=== PATIENT | female | born 1935 | race Caucasian/White ===

== ENCOUNTER 2019-12-15 18:40 | Inpatient (IN) | payer MEDICARE, OTHER ==
[2019-12-15] MEDS ORDERED: Enoxaparin Sodium 80 MG/0.8 ML SYRINGE ONE (19:52)
[2019-12-15] MEDS ORDERED: Acetaminophen 325 MG TAB PO PRN (22:52)
[2019-12-15] MEDS ORDERED: Ondansetron PF 4 MG/2 ML Vial IVP PRN (22:52)
[2019-12-15] MEDS ORDERED: Ondansetron ODT 4 MG TAB SL PRN (22:52)
[2019-12-15] MEDS ORDERED: Diltiazem HCl 125 MG, Admixture Fee 1 EACH in Sodium Chloride 0.9% 100 ML IVPB SCH (23:00)
[2019-12-15] MEDS ORDERED: Melatonin 3 MG TAB PO PRN (23:16)
[2019-12-15 23:46] LABS: Troponin I 0.112 ng/mL (< 0.028)
[2019-12-16] MEDS ORDERED: Acetaminophen 325 MG TAB PO PRN (01:22)
[2019-12-16] MEDS ORDERED: Ondansetron PF 4 MG/2 ML Vial IVP PRN (01:22)
[2019-12-16] MEDS ORDERED: Acetaminophen 650 MG Suppository PR PRN (01:22)
[2019-12-16] MEDS ORDERED: Ondansetron ODT 4 MG TAB PO PRN (01:22)
[2019-12-16 02:24] LABS: #Basophils 0.1 thou/uL (0.0-0.2); #Eosinphils 0.2 thou/uL (0.0-0.7); #Lymphocytes 2.3 thou/uL (1.20-3.40); #Monocytes 0.9 thou/uL (0.11-0.59); #Neutrophils 4.8 thou/uL (1.40-6.50); %Basophils 1.2 % (0.0-1.0); %Eosinophils 2.9 % (0.0-10.0); %Lymphocytes 27.8 % (21.0-51.0); %Monocytes 10.9 % (0.0-10.0); %Neutrophils 57.3 % (42.0-75.0); Hemoglobin 10.9 g/dL (12.0-16.0); Mean Corpuscular HGB CONC 32.9 g/dL (32.0-36.0); Mean Corpuscular Hemoglobin 30.3 pg (27.0-31.0); Mean Corpuscular Volume 92.3 fL (78.0-98.0); Mean Platelet Volume 7.2 fL (7.4-10.4); Platelet Count 310 thou/uL (130-400); RBC Distribution Width 11.7 % (11.5-14.5); Red Blood Cell (RBC) Count 3.58 mill/uL (4.20-5.40); White Blood Cell (WBC) Count 8.4 thou/uL (4.8-10.8)
[2019-12-16] MEDS ORDERED: Diltiazem HCl 125 MG, Admixture Fee 1 EACH in Sodium Chloride 0.9% 100 ML IVPB SCH (02:32)
[2019-12-16 02:42] LABS: Anion Gap 13 mmol/L (10-20); BUN (Urea Nitrogen) 17 mg/dL (9.8-20.1); Calc. Creatinine Clearance 70 mL/min (70-130); Calcium 9.2 mg/dL (7.8-10.44); Carbon Dioxide 24 mmol/L (23-31); Chloride 107 mmol/L (98-107); Estimated GFR-MDRD 75; Glucose 127 mg/dL (83-110); Magnesium 1.9 mg/dL (1.6-2.6); Potassium 4.2 mmol/L (3.5-5.1); Sodium 140 mmol/L (136-145)
[2019-12-16 02:55] LABS: Lactic Acid 1.5 mmol/L (0.5-2.2)
--- NOTE | 2019-12-16 05:23 | PDOC.HHP ---
Hospitalist HPI - History of Present Illness Palpitations History of Present Illness: Patient presents to the emergency department due to palpitations. States she felt like her heart has been racing for days. She was seen at [facility] and found to be in a flutter therefore started on a diltiazem drip. Laboratory studies done at [facility] showed an indeterminate troponin. Patient denied any chest pain and only complained of feeling her heart racing. She is status post left hip replacement done November 25, 2019. States she has been doing well since her surgery and denies any complaints. No chest pain palpitations or shortness of breath. No cough or hemoptysis. No nausea vomiting no abdominal pain. Has been afebrile without any chills or sweats. All other review systems are negative. ED COURSE: EKG done in the emergency department showed she was in a flutter with heart rate in the 140s. She was given a bolus of diltiazem 20 mg. Also given Lovenox 1 mg/kg and started on a diltiazem drip at 5 mg/h. She was rate controlled in the 80s. Her heart rate steadily increased to the 150s and therefore Cardizem was increased to 7.5 mg/h. She has been rate controlled since then in the 80s. Repeat troponin was 0.135 and then 0.112. [place] ED COURSE: Patient apparently received 6 mg of adenosine 5 mg of metoprolol at outside ER. She also received 20 mg bolus of diltiazem and was started on a diltiazem drip at 5 mg/h. Hemoglobin was 11.9 platelets 355 sodium 142 potassium 4.1 and troponin 0.099. Creatinine 0.82. Glucose 120. PAST MEDICAL HISTORY: Hypertension History of CVA PAST SURGICAL HISTORY: Status post left hip replacement SOCIAL HISTORY: Denies any tobacco use alcohol consumption or illicit drug use. FAMILY HISTORY: Noncontributory. ALLERGIES: No known drug allergies CURRENT MEDICATIONS: Aspirin 81 mg p.o. daily Telmisartan Omeprazole Niacin Probiotic Vitamin B complex Hydrocodone Hospitalist ROS - Medication Medications: Active Medications Generic Name Dose Route Start Last Admin Trade Name Freq PRN Reason Stop Dose Admin Melatonin 3 mg 12/15/19 23:16 12/15/19 23:31 Melatonin PO 3 mg HS PRN Administration Insomnia - Exam General Appearance: NAD General - other findings: Vital signs temp 98.5 pulse 77 BP 118/63 RR 17 O2 sat 96% on RA Eye: PERRL, anicteric sclera ENT: normocephalic atraumatic, no oropharyngeal lesions Neck: supple, no lymphadenopathy Heart: RRR, no murmur, no gallops, no rubs, normal peripheral pulses Respiratory: CTAB, no wheezes, no rales, no ronchi, normal chest expansion Gastrointestinal: soft, non-tender, non-distended, normal bowel sounds, no palpable masses, no guarding, no rigidity Extremities: no edema Skin: normal turgor, no lesions, no rashes Neurological: cranial nerve grossly intact Musculoskeletal: normal tone, normal strength Psychiatric: normal affect, normal behavior, A&O x 3 Hospitalist Results - Labs Result Diagrams: 12/16/19 02:11 12/16/19 02:11 Lab results: WBC 8.4 thou/uL (4.8-10.8) 12/16/19 02:11 Hgb 10.9 g/dL (12.0-16.0) L 12/16/19 02:11 Hct 33.1 % (36.0-47.0) L 12/16/19 02:11 MCV 92.3 fL (78.0-98.0) 12/16/19 02:11 Plt Count 310 thou/uL (130-400) 12/16/19 02:11 Neutrophils % 57.3 % (42.0-75.0) 12/16/19 02:11 Sodium 140 mmol/L (136-145) 12/16/19 02:11 Potassium 4.2 mmol/L (3.5-5.1) 12/16/19 02:11 Chloride 107 mmol/L (98-107) 12/16/19 02:11 Carbon Dioxide 24 mmol/L (23-31) 12/16/19 02:11 BUN 17 mg/dL (9.8-20.1) 12/16/19 02:11 Creatinine 0.74 mg/dL (0.6-1.1) 12/16/19 02:11 Glucose 127 mg/dL (83-110) H 12/16/19 02:11 Lactic Acid 1.5 mmol/L (0.5-2.2) 12/16/19 02:33 Calcium 9.2 mg/dL (7.8-10.44) 12/16/19 02:11 Troponin I 0.110 ng/mL (< 0.028) H 12/16/19 02:11 Hospitalist H&P A/P - Problem (1) Atrial flutter Code(s): I48.92 - UNSPECIFIED ATRIAL FLUTTER Status: Acute (2) Elevated troponin Code(s): R79.89 - OTHER SPECIFIED ABNORMAL FINDINGS OF BLOOD CHEMISTRY Status : Acute (3) Hypertension Code(s): I10 - ESSENTIAL (PRIMARY) HYPERTENSION Status: Chronic (4) History of CVA (cerebrovascular accident) Code(s): Z86.73 - PRSNL HX OF TIA (TIA), AND CEREB INFRC W/O RESID DEFICITS Status: Chronic (5) Status post total replacement of left hip Code(s): Z96.642 - PRESENCE OF LEFT ARTIFICIAL HIP JOINT Status: Acute - Plan Plan: Continue diltiazem drip. Consult cardiology. Continue to trend troponins. Will check d-dimer in light of recent surgery and tachycardia. Monitor BP. Reconcile home medications once verified. Continue cardiac monitoring. Obtain UA/UCx. Obtain baseline CXR.
[2019-12-16 07:25] LABS: CKMB 0.6 ng/mL (0-6.6)
--- NOTE | 2019-12-16 07:37 | RAD ---
CHEST 1 VIEW: Date: 12/16/2019 INDICATION: History of palpitations. COMPARISON: Prior exam dated 01/05/2010. IMPRESSION: Heart size upper limits of normal. Lungs clear. No pleural effusion or pneumothorax evident. No acute osseous abnormality evident. IMPRESSION: No acute abnormality. POS: BH
--- NOTE | 2019-12-16 08:51 | CT ---
CT OF THE THORAX WITH IV CONTRAST AND 3D REFORMATTED IMAGING: INDICATION: Elevated D-dimer with tachycardia. COMPARISON: Prior CT of the chest dated 12/09/2009. FINDINGS: Respiratory motion artifact slightly limits image detail with subsegmental and segmental branches of both pulmonary arterial trees. No definite central pulmonary embolus is evident. No confluent airsp adrianne opacity is noted. There are areas of mild subsegmental volume loss involving both lung bases. N o pneumothorax is evident. No pleural effusion is evident. No pathologically enlarged lymph nodes a re evident. There are coronary artery and thoracic aorta calcifications. Visualized upper abdomen r eveals no acute abnormality. No definite acute osseous abnormality is evident. IMPRESSION: 1. No definite central pulmonary embolus. 2. Areas of nonspecific subsegmental volume loss involving both lung bases. Otherwise, no acute car diopulmonary abnormality. POS: BH
[2019-12-16] MEDS: Famotidine/PF 20 mg/2ml Vial SLOW IVP SCH (09:59)
--- NOTE | 2019-12-16 10:04 | CON ---
DATE OF CONSULTATION: REASON FOR CONSULTATION: Mildly elevated troponin and atrial flutter. PRIMARY RODBUSTER: None. HISTORY OF PRESENT ILLNESS: Ms. Mancilla is an 84-year-old woman with past history of recent hip surgery, who recently developed palpitations. No chest pain, pressure, shortness of breath, or associated symptoms noted. No lightheadedness or dizziness. She presented to an [facility] emergency room with atrial flutter. This was confirmed with adenosine infusion. She was placed on IV Cardizem and transferred to [facility]. PAST MEDICAL HISTORY: Hypertension, previous CVA. SURGICAL HISTORY: Hip surgery. HOME MEDICATIONS: Include 1. Aspirin. 2. Telmisartan. 3. Omeprazole. 4. Niacin. 5. Probiotic. 6. Vitamin B complex. ALLERGIES: STATINS. REVIEW OF SYSTEMS: A 10-point review of systems is reviewed as above, otherwise negative. PHYSICAL EXAMINATION: GENERAL: Patient is a pleasant woman, who is in no acute distress. The patient appears their stated age. VITAL SIGNS: Blood pressure 119/63, pulse 120s to 140s, respirations 20. NEUROLOGIC: The patient is alert and oriented x3 with no focal neurologic deficits. HEENT: Sclerae without icterus. Mouth has moist mucous membranes with normal pallor. NECK: No JVD. Carotid upstroke brisk. No bruits bilaterally. LUNGS: Clear to auscultation with unlabored respirations. BACK: No scoliosis or kyphosis. CARDIAC: Irregularly irregular. ABDOMEN: Soft, nontender, nondistended. No peritoneal signs present. No hepatosplenomegaly. No abnormal striae. EXTREMITIES: 2+ femoral and 2+ dorsalis pedis pulses. No cyanosis, clubbing, or edema. SKIN: No gross abnormalities. PERTINENT LABORATORY DATA: Hemoglobin 10.9, hematocrit 33.1. Peak troponin 0.135. IMPRESSION: 1. Atrial flutter. 2. Elevated troponin. RECOMMENDATIONS: Ms. Mancilla's elevated troponin is likely type 2 myocardial infarction from atrial flutter. The patient has a high heart rate noted. I discussed proceeding with a TATYANA/cardioversion versus ablation. She appears fairly stable and is currently on 10 mg IV of Cardizem. I am concerned about recurrence of atrial flutter. I would therefore recommend EP consultation for possible ablation. I would recommend echo with Doppler, and we will review. We will keep n.p.o. Job ID: [id number]
[2019-12-16 13:04] LABS: SARS-CoV-2 MS2 Positive; SARS-CoV-2 N Gene Negative; SARS-CoV-2 S Gene Negative; SARS-CoV-2 by NAA Not Detected (NotDetected); SARS-CoV-2 orf1ab Negative
--- NOTE | 2019-12-16 13:17 | PDOC.HOSPP ---
- Subjective Encounter Date: 12/16/19 Encounter Time: 11:35 Subjective: Hard of hearing. Her heart rate is quite labile. With exertion of even small talks her heart rate jumped from 1 10-1 40 while I am watching the monitor. Also discussed with RN. On Cardizem running at 10 mics an hour. - Objective Vital Signs & Weight: Vital Signs (12 hours) Temp 12/16/19 12:00 99.4 F 12/16/19 07:46 98.3 F 12/16/19 04:02 98.2 F Weight Weight 175 lb Most Recent Monitor Data Heart Rate from ECG 95 NIBP 146/77 NIBP BP-Mean 100 Respiration from ECG 18 SpO2 96 I&O: 12/15/19 12/16/19 12/17/19 06:59 06:59 06:59 Intake Total 405 Output Total 500 Balance -95 Result Diagrams: 12/16/19 02:11 12/16/19 02:11 Hospitalist ROS - Medication Medications: Active Medications Generic Name Dose Route Start Last Admin Trade Name Nicanorq PRN Reason Stop Dose Admin Famotidine 20 mg 12/16/19 09:00 12/16/19 09:59 Pepcid SLOW IVP 20 mg DAILY ILAN Administration Melatonin 3 mg 12/15/19 23:16 12/15/19 23:31 Melatonin PO 3 mg HS PRN Administration Insomnia - Exam General Appearance: NAD, awake alert Eye: PERRL ENT: normocephalic atraumatic Neck: supple Respiratory: CTAB, normal chest expansion Neurological: no focal deficits Psychiatric: A&O x 3 Hosp A/P - Plan Atrial flutter Code(s): I48.92 - UNSPECIFIED ATRIAL FLUTTER Status: Acute (2) Elevated troponin Code(s): R79.89 - OTHER SPECIFIED ABNORMAL FINDINGS OF BLOOD CHEMISTRY Status : Acute (3) Hypertension Code(s): I10 - ESSENTIAL (PRIMARY) HYPERTENSION Status: Chronic (4) History of CVA (cerebrovascular accident) Code(s): Z86.73 - PRSNL HX OF TIA (TIA), AND CEREB INFRC W/O RESID DEFICITS Status: Chronic (5) Status post total replacement of left hip Code(s): Z96.642 - PRESENCE OF LEFT ARTIFICIAL HIP JOINT Status: Acute - Follow-up on TSH and a 2D echo. Still on Cardizem drip. She is only on ARBs as home medication. Will start her on Cardizem p.o. and wean her off the drip. Plan for ablation by EP Consult placed.
[2019-12-16] MEDS: HYDROcodone/Acetaminophen 7.5/325 mg Tablet PO SCH ×3 (15:28→22:56)
[2019-12-16] MEDS ORDERED: Iopamidol 370 76% 100 ML VIAL ONE (16:10)
[2019-12-16] MEDS: Diltiazem HCl 125 MG, Admixture Fee 1 EACH in Sodium Chloride 0.9% 100 ML IVPB SCH (20:18)
[2019-12-16] MEDS: Melatonin 3 MG TAB PO SCH (20:22)
--- NOTE | 2019-12-16 21:02 | EKG ---
Test Reason : Blood Pressure : / mmHG Vent. Rate : 105 BPM Atrial Rate : 288 BPM P-R Int : 000 ms QRS Dur : 086 ms QT Int : 340 ms P-R-T Axes : 000 026 063 degrees QTc Int : 449 ms Atrial flutter with variable A-V block Nonspecific ST abnormality Abnormal ECG No previous ECGs available Confirmed by Agustin SPRAGUE ([id number]) on 12/16/2019 9:01:57 PM Referred By: DIAMANTE Confirmed By:Agustin SPRAGUE
--- NOTE | 2019-12-16 21:46 | CON ---
DATE OF CONSULTATION: 12/16/2019 REFERRING REPAIRER FINISHED METAL: Theo Og MD HISTORY OF PRESENT ILLNESS: Ms. Mancilla is a very pleasant 84-year-old white female with no prior cardiac history. She is and I took care of her for many years. She had left hip replacement on November 25, 2019. Approximately one week ago, she noticed her heart rate being elevated. She has mild daily exertional dyspnea, improved with rest. She has mild daily fatigue without exacerbating or alleviating factors. She has no chest discomfort, syncope, or falls. She does have a previous history of stroke. She was noted to be in typical atrial flutter. In the Emergency Department, she was started on intravenous Cardizem. Her rate is controlled at rest, but is increased with exertion to the 140s. She has no symptoms of heart failure. PAST MEDICAL HISTORY: 1. Hypertension. 2. Stroke in 2007 with some residual difficulty writing and some gait instability, otherwise no deficits. PAST SURGICAL HISTORY: Left hip replacement as above. ALLERGIES: NO KNOWN DRUG ALLERGIES. OUTPATIENT MEDICATIONS: 1. Aspirin 81 mg daily. 2. Telmisartan. 3. Omeprazole. 4. Niacin. 5. Probiotic. SOCIAL HISTORY: . She lives next door to her daughter, Myriam Donaldson in [place]. No tobacco or alcohol. FAMILY HISTORY: Unremarkable. REVIEW OF SYSTEMS: Negative for unilateral weakness or numbness, seizure, syncope, orthopnea, edema, paroxysmal nocturnal dyspnea, chest discomfort, or falls. PHYSICAL EXAMINATION: GENERAL: Alert and ordered x4. No apparent distress. VITAL SIGNS: Afebrile. Blood pressure 115/57, pulse 90 to 120, and respiratory rate 12. Height 5 feet 4 inches and weight 175 pounds. HEENT: No lesions. Sclerae clear. SKIN: No lesions. EXTREMITIES: No cyanosis, clubbing, or edema. NECK: No jugular venous distention. PSYCHIATRIC: Mood and affect normal. NEUROLOGIC: Alert orient x4. LABORATORY DATA: WBC 8.4, hemoglobin 10.9, and platelets 310. Sodium 140, potassium 4.2, BUN 17, creatinine 0.7, and glucose 127. Troponin 0.11. TSH 0.0268. IMPRESSION: 1. Typical atrial flutter with difficult to control heart rate, symptomatic. 2. Hypertension. 3. Prior history of stroke. RECOMMEND: 1. Lovenox 1 mg/kg subcutaneously q.12 hours. First dose now, repeat again tomorrow morning at 6 a.m. 2. Continue intravenous Cardizem. 3. Check INR. 4. We discussed risks, benefits, and alternatives of transesophageal echocardiogram and electrophysiology study with cavotricuspid isthmus ablation, including but not limited to myocardial infarction, stroke, , vascular damage, thrombosis, need for emergent surgery, need for permanent pacemaker, damage to esophageal or oropharyngeal structures. She is agreeable to proceed. We will plan to do tomorrow afternoon. We will keep her n.p.o. after midnight. Job ID: [id number]
[2019-12-17] MEDS: HYDROcodone/Acetaminophen 7.5/325 mg Tablet PO SCH ×6 (02:59→23:55)
[2019-12-17 03:44] LABS: #Eosinphils 0.2 thou/uL (0.0-0.7); #Lymphocytes 1.9 thou/uL (1.20-3.40); #Monocytes 0.9 thou/uL (0.11-0.59); #Neutrophils 4.9 thou/uL (1.40-6.50); %Eosinophils 2.8 % (0.0-10.0); %Lymphocytes 24.5 % (21.0-51.0); %Monocytes 10.7 % (0.0-10.0); Hemoglobin 10.8 g/dL (12.0-16.0); Mean Corpuscular HGB CONC 32.9 g/dL (32.0-36.0); Mean Corpuscular Hemoglobin 30.4 pg (27.0-31.0); Mean Corpuscular Volume 92.3 fL (78.0-98.0); Mean Platelet Volume 7.2 fL (7.4-10.4); Platelet Count 299 thou/uL (130-400); RBC Distribution Width 11.6 % (11.5-14.5); Red Blood Cell (RBC) Count 3.56 mill/uL (4.20-5.40); White Blood Cell (WBC) Count 7.9 thou/uL (4.8-10.8)
[2019-12-17 03:48] LABS: INR-International Normal Ratio 1.1; Prothrombin Time 14.1 sec (12.0-14.7)
[2019-12-17 04:05] LABS: Anion Gap 12 mmol/L (10-20); BUN (Urea Nitrogen) 14 mg/dL (9.8-20.1); Calc. Creatinine Clearance 76 mL/min (70-130); Calcium 9.1 mg/dL (7.8-10.44); Carbon Dioxide 24 mmol/L (23-31); Chloride 105 mmol/L (98-107); Estimated GFR-MDRD 82; Glucose 121 mg/dL (83-110); Sodium 137 mmol/L (136-145)
[2019-12-17] MEDS ORDERED: Enoxaparin Sodium 80 MG/0.8 ML SYRINGE SC SCH (06:00)
[2019-12-17] MEDS ORDERED: Losartan 25 MG TAB PO SCH (09:00)
[2019-12-17] MEDS: Famotidine/PF 20 mg/2ml Vial SLOW IVP SCH (09:40)
[2019-12-17] MEDS ORDERED: PROPOFOL 200 MG/20 ML VIAL ONE (10:17)
[2019-12-17 11:25] VITALS: TEMP 98.2
[2019-12-17] MEDS: Diltiazem HCl 125 MG, Admixture Fee 1 EACH in Sodium Chloride 0.9% 100 ML IVPB SCH (12:41)
[2019-12-17] MEDS ORDERED: Fentanyl 100 MCG/2 ML VIAL ONE (13:09)
[2019-12-17] MEDS ORDERED: Propofol 1,000 MG/100 ML VIAL IV ONE (13:09)
[2019-12-17] MEDS ORDERED: Lidocaine 1% (PF) 30 ML VIAL ONE (14:07)
--- NOTE | 2019-12-17 14:15 | PDOC.HOSPP ---
- Subjective Encounter Date: 12/17/19 Encounter Time: 11:55 Subjective: Plan for ablation today. Lovenox twice daily dose. Patient is doing well her heart rate in the monitor in 80s. Echo report reviewed. - Objective Vital Signs & Weight: Vital Signs (12 hours) Temp BP 12/17/19 11:24 98.2 F 12/17/19 07:33 97.6 F 12/17/19 04:00 98.0 F 12/17/19 03:04 122/65 Weight Weight 175 lb Most Recent Monitor Data Heart Rate from ECG 91 NIBP 101/69 NIBP BP-Mean 79 Respiration from ECG 12 SpO2 99 I&O: 12/16/19 12/17/19 12/18/19 06:59 06:59 06:59 Intake Total 405 Output Total 500 1150 Balance -95 -1150 Result Diagrams: 12/17/19 03:30 12/17/19 03:30 Hospitalist ROS - Medication Medications: Active Medications Generic Name Dose Route Start Last Admin Trade Name Freq PRN Reason Stop Dose Admin Hydrocodone Bitart/Acetaminophen 1 tab 12/16/19 14:00 12/17/19 09:40 Lucas 7.5/325 PO 1 tab Q4H ILAN Administration Famotidine 20 mg 12/16/19 09:00 12/17/19 09:40 Pepcid SLOW IVP 20 mg DAILY ILAN Administration Diltiazem HCl 125 mg/ 125 mls @ 7.5 mls/hr 12/16/19 19:30 12/17/19 12:41 Miscellaneous Medication 1 IVPB 125 mls each/ Sodium Chloride INF ILAN Administration Protocol Losartan Potassium 50 mg 12/17/19 09:00 12/17/19 09:40 Cozaar PO 50 mg DAILY ILAN Administration Melatonin 3 mg 12/15/19 23:16 12/15/19 23:31 Melatonin PO 3 mg HS PRN Administration Insomnia Melatonin 3 mg 12/16/19 21:00 12/16/19 20:22 Melatonin PO 3 mg HS ILAN Administration - Exam General Appearance: NAD, awake alert Eye: PERRL ENT: normocephalic atraumatic Heart: RRR, irregular Respiratory: CTAB, normal chest expansion Gastrointestinal: soft, normal bowel sounds Neurological: no focal deficits Psychiatric: A&O x 3 Hosp A/P - Plan Atrial flutter Code(s): I48.92 - UNSPECIFIED ATRIAL FLUTTER Status: Acute (2) Elevated troponin Code(s): R79.89 - OTHER SPECIFIED ABNORMAL FINDINGS OF BLOOD CHEMISTRY Status : Acute (3) Hypertension Code(s): I10 - ESSENTIAL (PRIMARY) HYPERTENSION Status: Chronic (4) History of CVA (cerebrovascular accident) Code(s): Z86.73 - PRSNL HX OF TIA (TIA), AND CEREB INFRC W/O RESID DEFICITS Status: Chronic (5) Status post total replacement of left hip Code(s): Z96.642 - PRESENCE OF LEFT ARTIFICIAL HIP JOINT Status: Acute - Follow-up on TSH and a 2D echo. Still on Cardizem drip. She is only on ARBs as home medication. Will start her on Cardizem p.o. and wean her off the drip. Plan for ablation by EP Consult placed. 2D echo shows EF of 60% and normal right ventricular function normal aortic wall mild tricuspid regurgitation. 10th Severe hyperthyroidism -Perhaps explains her atrial flutter Plan for ablation today. Will check free T4. She would benefit with starting her on a low-dose methimazole. Will check with EP before starting her on this medication.
[2019-12-17] MEDS ORDERED: Lidocaine 2% Jelly 5 ML TUBE ONE (15:10)
--- NOTE | 2019-12-17 15:10 | PDOC.EP ---
- Subjective Date: 12/17/19 Time: 15:08 Interval History: No complaints. No chest discomfort, dyspnea, syncope or falls. - Objective Allergies/Adverse Reactions: Allergies Allergy/AdvReac Type Severity Reaction Status Date / Time Ssjbgbg-Nhk-Iem Reductase Allergy Verified 12/15/19 22:49 Inhibitor Current Medications Acetaminophen (Tylenol) 650 mg PO Q4H PRN PRN Reason: Headache/Fever/Mild Pain (1-3) Acetaminophen (Tylenol) 650 mg DC Q4H PRN PRN Reason: Headache/Fever/Mild Pain (1-3) Hydrocodone Bitart/Acetaminophen ([place] 7.5/325) 1 tab PO Q4H ILAN Last Admin: 12/17/19 09:40 Dose: 1 tab Diltiazem HCl (Cardizem) 30 mg PO TID ILAN Famotidine (Pepcid) 20 mg SLOW IVP DAILY [facility] Last Admin: 12/17/19 09:40 Dose: 20 mg Diltiazem HCl 125 mg/Miscellaneous Medication 1 each/ Sodium Chloride 125 mls @ 7.5 mls/hr IVPB INF ILAN; Protocol Last Admin: 12/17/19 12:41 Dose: 125 mls Melatonin (Melatonin) 3 mg PO HS PRN PRN Reason: Insomnia Last Admin: 12/15/19 23:31 Dose: 3 mg Melatonin (Melatonin) 3 mg PO HS ILAN Last Admin: 12/16/19 20:22 Dose: 3 mg Methimazole () 5 mg PO DAILY [facility] Ondansetron HCl (Zofran Odt) 4 mg PO Q6H PRN PRN Reason: Nausea/Vomiting Ondansetron HCl (Zofran) 4 mg IVP Q6H PRN PRN Reason: Nausea/Vomiting Sodium Chloride (Flush - Normal Saline) 10 ml IVF Q12HR PRN PRN Reason: Saline Flush Sodium Chloride (Flush - Normal Saline) 10 ml IVF PRN PRN PRN Reason: Saline Flush Vital Signs & Weight: Vital Signs Temp 12/17/19 11:24 98.2 F 12/17/19 07:33 97.6 F 12/17/19 04:00 98.0 F Weight 175 lb I/O: I/O 12/16/19 12/17/19 12/18/19 06:59 06:59 06:59 Intake Total 405 Output Total 500 1150 200 Balance -95 -1150 -200 - Labs Result Diagrams: 12/17/19 03:30 12/17/19 03:30 - Assessment/Plan Assessment/Plan: Typical atrial flutter - Plan TATYANA and ablation today. Start Eliuqis 5 mg BID tonight. Discontinue diltiazem Hyperthyroidism - Agree with Methimazole.
[2019-12-17] MEDS ORDERED: Heparin 10,000 UNITS/ 10 ML VIAL ONE (15:22)
[2019-12-17] MEDS: Apixaban 5 MG TAB PO SCH (21:16)
[2019-12-17] MEDS: Melatonin 3 MG TAB PO SCH (21:16)
--- NOTE | 2019-12-18 00:02 | OP ---
DATE OF PROCEDURE: 12/17/2019 REFERRING LABORER DRIVER: Theo Og MD PREOPERATIVE DIAGNOSIS: Typical atrial flutter. POSTOPERATIVE DIAGNOSIS: Typical counter-clockwise right atrial flutter. PROCEDURES PERFORMED: 1. Cavotricuspid isthmus ablation. 2. Left atrial pacing and recording. LABORER DRIVER: Derrell Howe MD CORN SHUCKER: None. ANESTHESIA: Sedation. ESTIMATED BLOOD LOSS: 10 mL. SPECIMENS: None. COMPLICATIONS: None. DESCRIPTION OF PROCEDURE: Risks, benefits, and alternatives of transesophageal echocardiogram and radiofrequency ablation were discussed prior to the case. After appropriate sedation, transesophageal echocardiogram was performed, which showed mild left atrial enlargement with ejection fraction 65% and normal valvular structures. There is no evidence of thrombus. The patient was prepped and draped in sterile fashion. Lidocaine was infiltrated in the bilateral femoral areas. Access was obtained with ultrasound guidance. A RAMP sheath was placed in the right femoral vein and a long 7-Cambodian sheath and a short 5-Cambodian sheath were placed in the left femoral vein. Catheters were advanced under fluoroscopic guidance. A duodecapolar catheter was placed in the lateral right atrium. A decapolar catheter was placed in the coronary sinus. The left atrial pacing recording was performed. Using a flexibility irrigated radiofrequency ablation catheter, radiofrequency imaging was applied to the cavotricuspid isthmus. Next, cardiac cycle length extended and tachycardia terminated during the ablation. Medial collateral and lateral to medial blocks were demonstrated 20 minutes after the last radiofrequency application. Conduction from the proximal coronary sinus to the lateral cavotricuspid isthmus was 140 milliseconds. Sheaths were pulled. VASCADE closure device was used. Hemostasis was achieved. The patient tolerated the procedure well, was transferred to the recovery area in good condition. ASSESSMENT: 1. Typical atrial flutter. 2. Successful radiofrequency ablation. PLAN: 1. Start Eliquis 5 mg b.i.d. tonight. 2. Discontinue aspirin. 3. Continue Eliquis for one month. 4. Okay to discharge tomorrow from my standpoint. 5. Follow up with ROBBI Garcia at [facility] in about a month with EKG. We will arrange the followup. Job ID: [id number]
[2019-12-18 04:29] LABS: Hemoglobin 10.9 g/dL (12.0-16.0); Platelet Count 312 thou/uL (130-400)
[2019-12-18] MEDS: HYDROcodone/Acetaminophen 7.5/325 mg Tablet PO SCH ×3 (04:31→17:14)
[2019-12-18 04:41] VITALS: BP 152/67
--- NOTE | 2019-12-18 08:35 | ULT ---
THYROID ULTRASOUND INDICATION: Hyperthyroidism with low TSH TECHNIQUE: Grayscale and color Doppler images were obtained of the thyroid gland. COMPARISON: None FINDINGS: Right thyroid lobe: The right thyroid lobe measures 4.9 x 2.6 x 2.5 cm. There are numerous cystic and spongiform type thyroid nodules within the right thyroid lobe. One of the largest cyst is seen within the superior pole of the right thyroid lobe measuring 1.8 cm. There is a spongiform nodule raghu suring 1.6 cm within the lower pole of the right thyroid lobe. Thyroid isthmus: The thyroid isthmus measures 0.4 cm. There is a large cyst within the thyroid isthmu s measuring 7 mm Left thyroid lobe: The left thyroid lobe measures 5.1 x 2.3 x 1.9 cm. There are numerous cystic and s pongiform type nodules within the left thyroid lobe. One of the largest is seen within the mid left thyroid region measuring 1.5 cm. An additional 1.5 cm spongiform nodule seen in the inferior pole of the left thyroid lobe. IMPRESSION: 1. Multinodular goiter. 2. The most conspicuous solid and cystic nodules within the right and left thyroid lobe are consisten t with a TIRADS 1 lesions. No sonographic follow up is recommended.
[2019-12-18] MEDS ORDERED: Methimazole 5 MG TAB PO SCH (09:00)
[2019-12-18] MEDS: Apixaban 5 MG TAB PO SCH (09:08)
[2019-12-18] MEDS: Famotidine/PF 20 mg/2ml Vial SLOW IVP SCH (09:08)
--- NOTE | 2019-12-18 09:10 | PRG ---
DATE OF SERVICE: 12/18/2019 SUBJECTIVE: Ms. Mancilla is doing much better. She underwent a successful atrial flutter ablation yesterday. She appears to be in sinus rhythm. OBJECTIVE: VITAL SIGNS: Blood pressure 152/67, pulse 61, and temperature 98.2. LUNGS: Clear to auscultation. HEART: Regular rate and rhythm. ABDOMEN: Soft, nontender, nondistended. EXTREMITIES: No edema. IMPRESSION: Atrial flutter. RECOMMENDATIONS: 1. Continue Eliquis for a total of 30 days. 2. Recommend aspirin after Eliquis. 3. Follow up with Dr. Og in 1 to 2 weeks and EP in 1 to 2 weeks. Otherwise, from my standpoint, she is stable for discharge. Job ID: [id number]
--- NOTE | 2019-12-18 10:04 | PDOC.EP ---
- Subjective Date: 12/18/19 Time: 10:02 Interval History: No complaints. No chest discomfort, palpitations syncope or falls. - Objective Allergies/Adverse Reactions: Allergies Allergy/AdvReac Type Severity Reaction Status Date / Time Jylpwlu-Xez-Zop Reductase Allergy Verified 12/15/19 22:49 Inhibitor Current Medications Acetaminophen (Tylenol) 650 mg PO Q4H PRN PRN Reason: Headache/Fever/Mild Pain (1-3) Acetaminophen (Tylenol) 650 mg HI Q4H PRN PRN Reason: Headache/Fever/Mild Pain (1-3) Hydrocodone Bitart/Acetaminophen ([place] 7.5/325) 1 tab PO Q4H [facility] Last Admin: 12/18/19 07:11 Dose: Not Given Apixaban (Eliquis) 5 mg PO BID [facility] Last Admin: 12/18/19 09:08 Dose: 5 mg Famotidine (Pepcid) 20 mg SLOW IVP DAILY [facility] Last Admin: 12/18/19 09:08 Dose: 20 mg Melatonin (Melatonin) 3 mg PO HS PRN PRN Reason: Insomnia Last Admin: 12/15/19 23:31 Dose: 3 mg Melatonin (Melatonin) 3 mg PO HS [facility] Last Admin: 12/17/19 21:16 Dose: 3 mg Methimazole () 5 mg PO DAILY [facility] Ondansetron HCl (Zofran Odt) 4 mg PO Q6H PRN PRN Reason: Nausea/Vomiting Ondansetron HCl (Zofran) 4 mg IVP Q6H PRN PRN Reason: Nausea/Vomiting Sodium Chloride (Flush - Normal Saline) 10 ml IVF Q12HR PRN PRN Reason: Saline Flush Sodium Chloride (Flush - Normal Saline) 10 ml IVF PRN PRN PRN Reason: Saline Flush Vital Signs & Weight: Vital Signs Temp Pulse Resp BP Pulse Ox 12/18/19 03:45 98.2 F 61 18 152/67 H 95 Weight 175 lb I/O: I/O 12/17/19 12/18/19 12/19/19 06:59 06:59 06:59 Intake Total 150 Output Total 1150 600 Balance -1150 -600 150 - Labs Result Diagrams: 12/18/19 03:57 12/18/19 03:57 - Assessment/Plan Assessment/Plan: Typical atrial flutter - Successful ablation yesterday. Plan Eliquis 5 mg BID for one month. Discontinue aspirin. Follow up with ROBBI Garcia in about a month with ECG
--- NOTE | 2019-12-19 02:58 | PQF ---
CLINICAL DOCUMENTATION CLARIFICATION FORM: Dear : Derrell Howe Date / Time: 12/19/2019256 Please exercise your independent, professional judgment in responding to the clarification form. Clinical indicators are provided on the bottom of this form for your review Please check appropriate box(es) to clarify if the following diagnosis has been ruled in our ruled out: NSTEMI type 2 [ x ] Ruled in diagnosis [ ] Continue to treat [ ] Resolved [ ] Ruled out diagnosis [ ] Improving [ ] Cannot rule out diagnosis [ ] Other diagnosis [ ] Unable to determine Physician Signature: Date/Time: For continuity of documentation, please document condition throughout progress notes and discharge summary. Thank You. To be completed by CDI/Coding staff for physician review: Present Clinical Indicators - Signs / Symptoms / Labs Results and Location in Medical Record [X] CK-MB0.6, Troponin I 0.135; 0.112; 0.110; 0.087 Laboratory 12/15 [X] BP 120/68, Pulse 82, Resp 21 Vital signs 12/15 Elevated troponin H&P p1 12/14 Ramos PA-C [X] recently develop palpitation Consult Dr Og 12/15 [X] Elevated troponin is likely type 2 FL from Atrial flutter Consult Dr Og 12/15 Present Risk Factors Results and Location in Medical Record [X] 84 year-old Female H&P p1 12/14 Ramos PA-C [X] HTN H&P p1 12/14 Ramos PA-C [X] Hx of CVA H&P p1 12/14 Ramos PA-C [X] Atrial Flutter H&P p1 12/14 Ramos PA-C Present Treatments Results and Location in Medical Record [X] IV Heparin 1000 units/FL JUN 14 [X] IV Diltiazem HCL 125 mg JUN 14 [X] Eliquis 5 mg oral JUN 14 [X] TATYANA Cardio procedure Dr Howe 12/16 [X] Electrocardiogram Cardio procedure Dr Sesay 12/15 [X] Cardiology Consult Consult Dr Og 12/15 [X] Cavotricuspid isthmus ablation Cardio procedure Dr Howe 12/16 CDS/Draw Machine Operator Signature: Nani Ann Phone #: [phone] Date/Time: 12/19/2019256 This is a permanent part of the Medical Record [facility]
--- NOTE | 2019-12-19 15:49 | EKG ---
Test Reason : AFIB Blood Pressure : / mmHG Vent. Rate : 084 BPM Atrial Rate : 300 BPM P-R Int : 000 ms QRS Dur : 084 ms QT Int : 382 ms P-R-T Axes : 253 015 038 degrees QTc Int : 451 ms Atrial flutter with variable A-V block Abnormal ECG Confirmed by JODI YANG DO ([id number]), restaurant expeditor ROSLYN NIEVES ([id number] on 12/19/2019 3:49:01 PM Referred By: Confirmed By:JODI YANG DO
--- NOTE | 2019-12-20 12:12 | DIS ---
DATE OF ADMISSION: 12/15/2019 DATE OF DISCHARGE: 12/18/2019 DISCHARGE DIAGNOSES: 1. Atrial flutter with [id number]-ti-bkalzlq heart rate and symptomatic, status post ablation. 2. 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 3. Hypertension. 4. History of cerebrovascular accident without residual deficits. 5. Status post total left hip replacement. 6. Severe hyperthyroidism, new diagnosis during this hospitalization, started on methimazole. MEDICATIONS: 1. Telmisartan, her home medication, daily. 2. Methimazole 5 mg daily. 3. Apixaban 5 mg twice a day. 4. Melatonin one tablet at bedtime. 5. [place] as needed 7.5 q.4 hours. CONSULTS: Odd Job Laborer with Dr. Og and firestopper technician with Dr. Derrell Howe. PHYSICAL EXAMINATION: On the day of discharge, temperature 98.2, pulse 61, blood pressure 152/67, saturating 93% on room air. HOSPITAL COURSE: This is an 84-year-old female with a history of hypertension and stroke in 2007 with mild residual difficulty in writing and gait instability, this seems to be resolving, presented with atrial fibrillation along with daily exertional dyspnea improved with rest. She was started on Lovenox and transitioned to Eliquis. She went through radiofrequency ablation. Started on Eliquis and tolerated overnight. She will be continuing this for one month and then probably change back to aspirin. As a part of the atrial fibrillation workup, we did TSH and that happens to be 0.0268, free T3 is 2.3, free T4 is 1.04. I did an ultrasound and that showed a multinodular goiter with solid and cystic nodules within the right and left thyroid lobe. No ultrasound followup is recommended. I explained these findings along with starting her on a new medication, methimazole to the daughter, who seems to have better understanding of what is going on. They will follow up with primary care physician as I discussed with them and repeat TSH and free T4 in 2 to 3 weeks. She is hemodynamically stable, clinically sound enough to be discharged home today. DISCHARGE INSTRUCTIONS: Activity as tolerated. Healthy heart diet. Follow up with Dr. Og in 1 week. Follow up with Dr. Derrell Howe in 2 to 3 weeks. Follow up with PCP within 1 week. She needs a TSH and free T4 in 2 to 3 weeks and has to be followed with her primary care physician as the patient is started on methimazole. Discharge time took over 35 minutes. Job ID: [id number]
--- NOTE | 2019-12-20 16:05 | EKG ---
Test Reason : Blood Pressure : / mmHG Vent. Rate : 057 BPM Atrial Rate : 057 BPM P-R Int : 192 ms QRS Dur : 088 ms QT Int : 428 ms P-R-T Axes : 050 033 055 degrees QTc Int : 416 ms Sinus bradycardia with marked sinus arrhythmia Otherwise normal ECG When compared with ECG of 16-DEC-2019 10:09, Sinus rhythm has replaced Atrial flutter Vent. rate has decreased BY [address] no longer depressed in Lateral leads Nonspecific T wave abnormality no longer evident in Inferior leads Confirmed by Agustin SPRAGUE ([id number]) on 12/20/2019 4:04:50 PM Referred By: DIAMANTE Confirmed By:Agustin SPRAGUE
== END 2019-12-18 11:18 | disposition home health service (06) | DRG 273 ==
LOC: ERS 18:40 → IMCU/EMU 20:21 → 2NO 12-17 18:40
PROVIDERS: ADMIT Internal Medicine; ATTEND Internal Medicine
PROC: 02583ZZ Destruction of Conduction Mechanism, Percutaneous Approach (ICD-10-PCS; principal; 2019-12-17)
PROC: 4A0234Z Measurement of Cardiac Electrical Activity, Percutaneous Approach (ICD-10-PCS; 2019-12-17)
PROC: B24BZZ4 Ultrasonography of Heart with Aorta, Transesophageal (ICD-10-PCS; 2019-12-17)
DX: I48.3 Typical atrial flutter (principal); I21.A1 Myocardial infarction type 2; Z96.642 Presence of left artificial hip joint; I10 Essential (primary) hypertension; R26.89 Other abnormalities of gait and mobility; I07.1 Rheumatic tricuspid insufficiency; Z20.828 Contact with and (suspected) exposure to other viral communicable diseases; E05.90 Thyrotoxicosis, unspecified without thyrotoxic crisis or storm; Z79.899 Other long term (current) drug therapy; Z88.8 Allergy status to other drugs, medicaments and biological substances; Z79.82 Long term (current) use of aspirin; I69.398 Other sequelae of cerebral infarction
CPT/HCPCS: 36415; 71045; 71275; 76536; 76942; 80048; 82553; 82565; 83605; 83735; 84439; 84443; 84481; 84484; 85014; 85018; 85025; 85049; 85379; 85610; 87635; 93005; 93010; 93306; 93312; 93621; 93653; C1731; C1732; J1644; J1650; J2001; J2704; J3010; J3490; Q9967; S0028; U0003

== ENCOUNTER 2021-01-11 14:48 | Inpatient (IN) | payer MEDICARE, OTHER ==
[2021-01-11 17:31] VITALS: BMI 30.7
[2021-01-11] MEDS ORDERED: Ondansetron PF 4 MG/2 ML Vial IVP PRN (18:12)
[2021-01-11] MEDS ORDERED: hydrALAZINE 20 MG/ML VIAL SLOW IVP PRN (18:16)
[2021-01-11] MEDS ORDERED: HYDROmorphone 0.5 MG/0.5 ML SYRINGE SLOW IVP PRN (18:19)
[2021-01-11] MEDS: Dextrose 5 %-0.45 % NaCl 1,000 ML IV SCH (20:37)
[2021-01-11] MEDS: Piperacillin/Tazobactam 3.375 GM in Sodium Chloride 0.9% 100 ML IVPB SCH (20:37)
[2021-01-11] MEDS: Famotidine/PF 20 mg/2ml Vial SLOW IVP SCH (21:34)
[2021-01-12 01:47] LABS: SARS-CoV-2 PCR by NAA Not Detected (NotDetected)
[2021-01-12] MEDS: Piperacillin/Tazobactam 3.375 GM in Sodium Chloride 0.9% 100 ML IVPB SCH ×3 (04:02→21:49)
[2021-01-12 07:09] LABS: #Eosinphils 0.1 thou/uL (0.0-0.7); #Lymphocytes 1.5 thou/uL (1.20-3.40); #Monocytes 0.6 thou/uL (0.11-0.59); #Neutrophils 2.4 thou/uL (1.40-6.50); %Basophils 0.6 % (0.0-1.0); %Eosinophils 2.8 % (0.0-10.0); %Lymphocytes 32.1 % (21.0-51.0); %Monocytes 12.4 % (0.0-10.0); %Neutrophils 52.1 % (42.0-75.0); Hemoglobin 11.9 g/dL (12.0-16.0); Mean Corpuscular HGB CONC 33.7 g/dL (32.0-36.0); Mean Corpuscular Hemoglobin 30.9 pg (27.0-31.0); Mean Corpuscular Volume 91.7 fL (78.0-98.0); Mean Platelet Volume 7.5 fL (7.4-10.4); Platelet Count 160 thou/uL (130-400); RBC Distribution Width 11.9 % (11.5-14.5); Red Blood Cell (RBC) Count 3.85 mill/uL (4.20-5.40); White Blood Cell (WBC) Count 4.5 thou/uL (4.8-10.8)
[2021-01-12 07:15] LABS: Hemoglobin A1c 5.6 % (4.0-6.0)
[2021-01-12 07:23] LABS: INR-International Normal Ratio 1.1
[2021-01-12 07:30] LABS: ALT (SGPT) 15 U/L (8-55); AST (SGOT) 18 U/L (5-34); Albumin 3.4 g/dL (3.4-4.8); Alkaline Phosphatase 65 U/L (40-110); Anion Gap 9 mmol/L (10-20); BUN (Urea Nitrogen) 16 mg/dL (9.8-20.1); Bilirubin, Total 0.4 mg/dL (0.2-1.2); Calc. Creatinine Clearance 61 mL/min (70-130); Calcium 9.2 mg/dL (7.8-10.44); Carbon Dioxide 27 mmol/L (23-31); Cardiac Risk 4.6 (Less than 4.5); Chloride 109 mmol/L (98-107); Cholesterol 199 mg/dl (< 200 Desired); Globulin 2.1 g/dL (2.4-3.5); Glucose 92 mg/dL (83-110); HDL Cholesterol 43 mg/dL (>60 Neg Risk); LDL Cholesterol, Calculated 122 mg/dL; Lipase 383 U/L (8-78); Potassium 4.2 mmol/L (3.5-5.1); Protein, Total 5.5 g/dL (5.8-8.1); Sodium 141 mmol/L (136-145); Triglycerides 168 mg/dL (Less than 150)
[2021-01-12] MEDS ORDERED: HYDROcodone/Acetaminophen 7.5/325 mg Tablet PO PRN (07:57)
[2021-01-12] MEDS ORDERED: Morphine 4 MG/ML VIAL SLOW IVP PRN (08:18)
[2021-01-12] MEDS: Dextrose 5 %-0.45 % NaCl 1,000 ML IV SCH (10:41)
[2021-01-12] MEDS ORDERED: Ketorolac Tromethamine 30 MG/ML VIAL IVP SCH (12:45)
[2021-01-12] MEDS ORDERED: Scopolamine 1.5 mg/72 hour Patch TD SCH (13:00)
[2021-01-12] MEDS ORDERED: FLU VACC QS2021-22(65YR UP)/PF 240 MCG/0.7 ML SYRINGE IM ONE (17:45)
[2021-01-12] MEDS ORDERED: Dextrose 5 %-0.45 % NaCl 1,000 ML IV SCH (18:50)
[2021-01-12] MEDS: Famotidine/PF 20 mg/2ml Vial SLOW IVP SCH (21:49)
[2021-01-12] MEDS: Ketorolac Tromethamine 30 MG/ML VIAL IVP PRN (21:57)
[2021-01-13] MEDS: Piperacillin/Tazobactam 3.375 GM in Sodium Chloride 0.9% 100 ML IVPB SCH ×2 (04:05→12:31)
[2021-01-13 04:42] LABS: #Eosinphils 0.2 thou/uL (0.0-0.7); #Lymphocytes 1.7 thou/uL (1.20-3.40); #Monocytes 0.4 thou/uL (0.11-0.59); #Neutrophils 1.9 thou/uL (1.40-6.50); %Eosinophils 4.4 % (0.0-10.0); %Lymphocytes 39.8 % (21.0-51.0); %Monocytes 9.8 % (0.0-10.0); Mean Corpuscular HGB CONC 32.5 g/dL (32.0-36.0); Mean Corpuscular Hemoglobin 30.2 pg (27.0-31.0); Mean Platelet Volume 7.8 fL (7.4-10.4); Platelet Count 146 thou/uL (130-400); RBC Distribution Width 11.9 % (11.5-14.5); Red Blood Cell (RBC) Count 3.63 mill/uL (4.20-5.40); White Blood Cell (WBC) Count 4.2 thou/uL (4.8-10.8)
[2021-01-13 04:56] LABS: Anion Gap 9 mmol/L (10-20); BUN (Urea Nitrogen) 14 mg/dL (9.8-20.1); Calc. Creatinine Clearance 52 mL/min (70-130); Calcium 8.6 mg/dL (7.8-10.44); Carbon Dioxide 27 mmol/L (23-31); Chloride 106 mmol/L (98-107); Glucose 128 mg/dL (83-110); Sodium 138 mmol/L (136-145)
[2021-01-13] MEDS: Ketorolac Tromethamine 30 MG/ML VIAL IVP PRN (10:32)
[2021-01-13] MEDS ORDERED: Lidocaine 1% w/Epinephrine 1:100K 20 ML VIAL ONE (12:02)
[2021-01-13] MEDS ORDERED: Iothalamate Meglumine 60% 50 ML VIAL FS ONE (12:02)
[2021-01-13] MEDS ORDERED: Bupivacaine 0.25% HCL 30 ML VIAL ONE (12:02)
[2021-01-13] MEDS ORDERED: Fentanyl 100 MCG/2 ML VIAL ONE ×2 (12:18→13:49)
[2021-01-13] MEDS ORDERED: Sodium Chloride 0.9% 100 ML ONE (12:35)
[2021-01-13] MEDS ORDERED: Levofloxacin 500 mg/D5W 100 ml Premix Bag ONE (12:35)
[2021-01-13] MEDS ORDERED: Piperacillin/Tazobactam 3.375 GM VIAL ONE (12:35)
[2021-01-13] MEDS ORDERED: PROPOFOL 200 MG/20 ML VIAL ONE (12:44)
[2021-01-13] MEDS ORDERED: Glycopyrrolate 0.2 MG/ML 5 ML SYRINGE ONE (12:44)
[2021-01-13] MEDS ORDERED: Ondansetron PF 4 MG/2 ML Vial ONE (12:44)
[2021-01-13] MEDS ORDERED: Dexamethasone 20 MG/5 ML VIAL ONE (12:44)
[2021-01-13] MEDS ORDERED: Rocuronium Bromide 10 MG/ML (10ML VIAL) ONE (12:44)
[2021-01-13] MEDS ORDERED: Lidocaine 1% PF 5 ML VIAL ONE (12:44)
[2021-01-13] MEDS ORDERED: Ibuprofen 600 MG TAB PO PRN (13:47)
[2021-01-13] MEDS ORDERED: Acetaminophen 500 MG TAB PO PRN (13:47)
[2021-01-13] MEDS ORDERED: traMADol HCl 50 MG TAB PO PRN (13:47)
[2021-01-13] MEDS ORDERED: Promethazine HCl 25 MG/ML VIAL ONE (13:52)
[2021-01-13 16:29] VITALS: BP 142/66; TEMP 97.4
== END 2021-01-13 17:50 | disposition home or self-care (01) | DRG 419 ==
LOC: ONC 14:48 → OBSVTOIN 01-12 15:03
PROVIDERS: ADMIT Internal Medicine; ATTEND Internal Medicine
PROC: 0FT44ZZ Resection of Gallbladder, Percutaneous Endoscopic Approach (ICD-10-PCS; principal; 2021-01-13)
DX: K82.8 Other specified diseases of gallbladder (principal); Z20.822 Contact with and (suspected) exposure to COVID-19; Z66 Do not resuscitate; I10 Essential (primary) hypertension; E05.90 Thyrotoxicosis, unspecified without thyrotoxic crisis or storm; E03.9 Hypothyroidism, unspecified; K81.1 Chronic cholecystitis; E78.5 Hyperlipidemia, unspecified; Z96.642 Presence of left artificial hip joint; Z88.8 Allergy status to other drugs, medicaments and biological substances; Z79.899 Other long term (current) drug therapy; Z90.710 Acquired absence of both cervix and uterus; Z86.73 Personal history of transient ischemic attack (TIA), and cerebral infarction without residual deficits
CPT/HCPCS: 36415; 71045; 78227; 80048; 80053; 80061; 83036; 83690; 84443; 85025; 85610; 88304; 93005; 93010; 96365; 96366; 96375; 96376; A9537; G0378; J1610; J1885; J1956; J2405; J2543; J2550; J3010; J3490; J7042; Q9961; S0020; S0028; U0003; U0005

== ENCOUNTER 2022-05-15 07:11 | Day surgery (SDC) | payer MEDICARE, OTHER ==
[2022-05-14 08:52] VITALS: BMI 30.7
[2022-05-15] MEDS ORDERED: Gentamicin 80 MG/2 ML VIAL ONE (07:17)
[2022-05-15] MEDS ORDERED: CEFAZOLIN 1 GM VIAL ONE (07:17)
[2022-05-15] MEDS ORDERED: Lidocaine 1% (PF) 30 ML VIAL ONE (07:17)
[2022-05-15] MEDS ORDERED: FENTANYL 50 MCG/ML 1 ML VIAL ONE (07:18)
[2022-05-15] MEDS ORDERED: Midazolam HCl 2 mg/2 ml Vial ONE (07:18)
[2022-05-15] MEDS ORDERED: Ondansetron PF 4 MG/2 ML Vial ONE (07:18)
[2022-05-15] MEDS ORDERED: Vancomycin (BATCH) 1.5 GRAM/300 ML BAG ONE (07:40)
[2022-05-15] MEDS ORDERED: Acetaminophen 500 MG TAB ONE (11:28)
[2022-05-15] MEDS ORDERED: Iopamidol 370 76% 50 ML VIAL FS ONE (12:06)
[2022-05-15] MEDS ORDERED: Acetaminophen 500 MG TAB PO SCH (14:00)
== END 2022-05-15 13:55 | disposition home or self-care (01) ==
LOC: SDC 07:11
PROVIDERS: ATTEND Internal Medicine Cardiovascular Disease
PROC: 0JH606Z Insertion of Pacemaker, Dual Chamber into Chest Subcutaneous Tissue and Fascia, Open Approach (ICD-10-PCS; principal; 2022-05-15)
PROC: 02H63JZ Insertion of Pacemaker Lead into Right Atrium, Percutaneous Approach (ICD-10-PCS; 2022-05-15)
PROC: 02HK3JZ Insertion of Pacemaker Lead into Right Ventricle, Percutaneous Approach (ICD-10-PCS; 2022-05-15)
DX: I49.5 Sick sinus syndrome (principal); R00.1 Bradycardia, unspecified; I48.0 Paroxysmal atrial fibrillation; I47.1 Supraventricular tachycardia; I48.3 Typical atrial flutter; I10 Essential (primary) hypertension; I69.398 Other sequelae of cerebral infarction; R26.89 Other abnormalities of gait and mobility; K21.9 Gastro-esophageal reflux disease without esophagitis; E05.90 Thyrotoxicosis, unspecified without thyrotoxic crisis or storm; Z79.01 Long term (current) use of anticoagulants; Z79.899 Other long term (current) drug therapy; Z88.8 Allergy status to other drugs, medicaments and biological substances
CPT/HCPCS: 33208; 93005; C1785; C1898 ×2; J3370; 99156; 99157; J0690; J1580; J2001; J2250; J2405; J3010